=== PATIENT | male | born 1940 | race Caucasian/White ===

== ENCOUNTER 2017-05-07 06:08 | Day surgery (SDC) | payer MEDICARE, OTHER ==
[2017-05-07] VITALS (19 sets, daily range): BP systolic 122–163; BP diastolic 52–84; PULSE 46–67; RESP 20–40; Ht 180.3 cm; Wt 76.0 kg
[~2017-05-07] VITALS: Ht 180.3 cm; Wt 76.0 kg
[~2017-05-07 06:08] MED LIST: ACET325T45 PO; ASPI81TA3 PO; ATOR40TA68 PO; CARV12.598 PO; CLOP75TA27 PO; LISI10TA2 PO; LORA2DIS2 IJ; OXYC-281 PO; PHEN-612 PO; SPIR25TA PO; TAMS-14 PO; ZOF4I IV; ZOLP5TAB7 PO
[2017-05-07] MEDS ORDERED: ASPIRIN 325 MG TAB ONE (06:39)
[2017-05-07] MEDS ORDERED: METO-429 PO (06:55)
[2017-05-07] MEDS ORDERED: FURO40TA4 PO (06:55)
[2017-05-07] MEDS ORDERED: VALS80TA2 PO (06:55)
[2017-05-07] MEDS ORDERED: CITA10TA84 PO (06:55)
[2017-05-07] MEDS ORDERED: RANO500T2 PO (06:55)
[2017-05-07 07:06] LABS: ADD SCAN DIFF NO; BASOPHIL # 0.1 10^3/ul (0.0-0.1); BASOPHILS % 0.7 % (0.0-2.0); EOSINOPHILS # 0.2 10^3/ul (0.0-0.5); EOSINOPHILS % 2.9 % (0.0-7.0); HEMATOCRIT 42.4 % (42.0-52.0); HEMOGLOBIN 13.9 g/dl (14.0-18.0); LYMPHOCYTES # 1.5 10^3/ul (0.8-2.9); MEAN CORPUSCULAR HEMOGLOBIN 29.7 pg (29.0-33.0); MEAN CORPUSCULAR HGB CONC 32.8 g/dl (32.0-37.0); MEAN CORPUSCULAR VOLUME 90.6 fl (82.0-101.0); MEAN PLATELET VOLUME 10.1 fl (7.4-10.4); MONOCYTE # 0.5 10^3/ul (0.3-0.9); MONOCYTES % 6.6 % (0.0-11.0); NEUTROPHILS % 68.4 % (39.0-77.0); PLATELET COUNT 291 10^3/UL (140-415); RED BLOOD COUNT 4.68 10^6/ul (4.70-6.10); RED CELL DISTRIBUTION WIDTH 12.9 % (11.5-14.5); WHITE BLOOD COUNT 7.3 10^3/ul (4.8-10.8)
[2017-05-07] MEDS ORDERED: MIDAZOLAM 1 MG/ML 2 ML INJ ONE (07:27)
[2017-05-07] MEDS ORDERED: HEPARIN 1000 UNITS/ML 10 ML INJ ONE (07:27)
[2017-05-07] MEDS ORDERED: FENTAnyl 50 MCG/ML VIAL ONE (07:27)
[2017-05-07] MEDS ORDERED: IODIXANOL LOCM 100 ML BTL ONE (07:27)
[2017-05-07] MEDS ORDERED: LIDOCAINE 1% (MDV) 20 ML INJ ONE (07:27)
[2017-05-07] MEDS ORDERED: NITROGLYCERIN (IC) 100 MCG/ML INJ ONE (07:27)
[2017-05-07] MEDS ORDERED: VERAPAMIL 5 MG INJ ONE (07:27)
[2017-05-07 07:29] LABS: INR 0.93; PROTIME 12.5 Sec (12.2-14.2)
[2017-05-07 07:31] LABS: CALCIUM 9.8 mg/dl (8.4-10.2); CREATININE 1.18 mg/dl (0.61-1.24); POTASSIUM 4.2 mmol/L (3.5-5.1)
[2017-05-07] MEDS ORDERED: BIVALIRUDIN 250MG /NS 50 ML 50 ML IVPB ONE ×2 (08:22→09:18)
[2017-05-07] MEDS ORDERED: SOD CHLORIDE 0.9% 500 ML ONE (08:22)
[2017-05-07] MEDS ORDERED: CLOPIDOGREL 300 MG TAB ONE (08:22)
[2017-05-07] MEDS ORDERED: IOHEXOL 350MG/ML 50 ML BTL ONE (08:32)
[2017-05-07] MEDS ORDERED: SOD CHLORIDE 0.9% 1,000 ML IV SCH (09:44)
[2017-05-07] MEDS ORDERED: ONDANSETRON 4 MG INJ ONE (09:49)
[2017-05-07] MEDS ORDERED: morphine 2 MG INJ IV PRN (10:00)
[2017-05-07] MEDS ORDERED: ONDANSETRON 4 MG INJ IV PRN (10:00)
[2017-05-07] MEDS ORDERED: hydrALAzine 20 MG INJ IV PRN (10:30)
--- NOTE | 2017-05-07 10:32 | OPR ---
Date/Time of Note Date/Time of Note DATE: 05/07/17 TIME: 10:08 Operative Report Free Text/Dictation Procedure Date: Procedures Performed: 1)Left heart catheterization with selective left and right coronary angiography. 2)Aortogram 3)Unsuccessful PCI of distal OM in stent restenosis. Pre-operative Diagnosis: Stable angina with abnormal stress test. CAD s/p CABG , prior PCI Post-operative Diagnosis: same, see anatomy below Indications: 77 yo M with a h/o CAD s/p CABG 2008 (LAWRENCE-LAD, SVG jump graft to diag/OM/PDA), PCI of distal OM prior to jump grafts and prox/mid OM in the past. Pt had recurrence of symptoms despite maximal medical therapy. A nuclear scan showed anterior scar. PET viability showed lateral ischemia with viability. Description of Procedure: After informed consent, the patient was brought to the cardiac catheterization lab. The procedure site was prepped and draped in usual manner. The patient was premedicated with versed 1 mg and fentanyl 25 mcg. 2mL lidocaine was injected into the left wrist. Next using the posterior wall technique, the 6/5 macedonian sheath was inserted into the left radial artery. Next using the JL4 and IM, selective angiography of the left and right coronary arteries as well as the LAWRENCE were obtained. The pigtail was then advanced into the ventricle and hemodynamics obtained. Left ventricle angiography was not obtained. An aortogram was done. The decision was made to proceed with PCI of the distal OM for in stent restenosis as well as the ostial jump graft portion to the PDA. A Q curve 3.5 guide was used to engage the artery but did not sit well. The BMW wire was advanced to the mid OM but could not be advanced further. An OTW balloon was used for support and the wire was able to advance close to the lesion but the balloon would not follow due to inadequate guide support and severe vessel tortuosity. Next the equipment was removed and multiple guides attempted including an EBU 3.0, AL 1.5, JL 3.5, JL 5. Eventually the JL5 was engaged but again was not coaxial. The BMW wire was advanced with the help of the OTW balloon and would only get to the mid Cx. With advancement of the OTW the guide would dislodge. Next the wire was exchanged for a Runthrough wire and this was able to cross the OM lesion but not through the ostial vein graft lesion. The OTW balloon could not be advanced for support again due to tortuosity and guide support. At this time, the decision was made to stop and to bring the pt back for staged PCI in a few weeks. Next all equipment was removed and hemostasis was achieved by TR band. Findings: Anatomy/Hemodynamics: Left main:short, no disease LAD: mid 100%, fills via LAWRENCE Diagonal: fills via jump graft from OM Circumflex: distal 100% Obtuse marginal: large vessel with patent prox-mid stents, distal stent with 95 % ISR beyond which are two vein grafts (part of original jump graft) which backflow to the diag and PDA. The PDA vein graft has an ostial 95% lesion RCA:nondominant small vessel with mid 99% PDA:fills via jump graft from OM LAWRENCE-LAD patent Aortogram confirmed no vein grafts arising from the aorta Jump graft from OM to PDA: ostial 95% Jump graft from OM to Diag: patent LV angiography:not done LV-Ao:no gradient LVEDP: mmHg Contrast used: 230 mL Fluoroscopy time: 39.4 min Medications used: Versed 2mg Fentanyl 25mcg Equipment used: 6 macedonian Q-curve 3.5, AL 1, EBU 3.0, JL 3, JL 5 guides BMW and runthrough angioplasty wires 2 x 12 balloon OTW (not inflated) Assessment: [place] coronary artery disease of the distal OM with in stent restenosis supplying two jump grafts as described above Stable angina CAD s/p CABG s/p PCI Ischemic cardiomyopathy Plan: -observe in PACU for 6 hours, then d/c home if no issues -discussed case with pt's investor relations associate, Dr. Myers. Plan is to increase Ranexa to 1000mg BID -will stage PCI in 2-3 weeks as outpt -continue ASA, plavix and remainder of home meds POOJA KRUGER May 07, 2017 10:32
[2017-05-07] MEDS ORDERED: ASPIRIN 325 MG TAB PO SCH (12:30)
[2017-05-07] MEDS ORDERED: MIDAZOLAM 1 MG/ML 2 ML INJ IV SCH (12:30)
[2017-05-07] MEDS ORDERED: NACL 0.9% 3 ML SYG IV SCH (14:00)
[2017-05-07] MEDS ORDERED: ACETAMINOPHEN 325 MG TAB PO ONE (16:00)
--- NOTE | 2017-05-11 20:54 | RADRPT ---
Vent Rate: 59 bpm RR Interval: 0 msec [place] Interval: 210 msec QRS Duration: 114 msec QT Interval: 460 msec QTC Interval: 455 msec P-R-T [place]: 52 - 32 - 128 degrees Sinus bradycardia with 1st degree AV block Incomplete left bundle branch block Left ventricular hypertrophy with repolarization abnormality Abnormal ECG Electronically Signed By: Moody Carroll [id number]
== END 2017-05-07 16:10 | disposition home or self-care (01) ==
LOC: SDS 06:08
PROVIDERS: ATTEND Internal Medicine Interventional Cardiology
DX: I25.118 Atherosclerotic heart disease of native coronary artery with other forms of angina pectoris (principal); I25.5 Ischemic cardiomyopathy; Z95.1 Presence of aortocoronary bypass graft; Z95.5 Presence of coronary angioplasty implant and graft
CPT/HCPCS: 80048; 85025; 85610; 85730; 92920; 93005; 93459; C1725; C1769; C1887; J0583; J1644; J2250; J2405; J3010; J7040; Q9967

== ENCOUNTER 2017-05-18 07:44 | Day surgery (SDC) | payer MEDICARE, OTHER ==
[~2017-05-18] VITALS: Ht 180.3 cm; Wt 77.5 kg
[2017-05-18] VITALS (34 sets, daily range): BP systolic 119–158; BP diastolic 42–122; PULSE 43–67; RESP 7–21; Ht 180.3 cm; Wt 77.5 kg
[~2017-05-18 07:44] MED LIST changes: -ACET325T45 PO; -ATOR40TA68 PO; -CARV12.598 PO; +CITA10TA84 PO; +FURO40TA4 PO; -LISI10TA2 PO; -LORA2DIS2 IJ; +METO-429 PO; -OXYC-281 PO; -PHEN-612 PO; +RANO500T2 PO; -SPIR25TA PO; -TAMS-14 PO; +VALS80TA2 PO; -ZOF4I IV
--- NOTE | 2017-05-18 08:21 | OPR ---
Date/Time of Note Date/Time of Note DATE: 05/18/17 TIME: 08:16 Operative Report Free Text/Dictation Procedure Date:05/18/2017 Procedures Performed: 1)Balloon angioplasty and stenting of the distal OM extending into jump graft to the PDA with a Synergy 2.5 x 16 drug-eluting stent. 2)Left femoral angiogram 3)Distal aorta angiogram Pre-operative Diagnosis:Stable angina with abnormal stress test. CAD s/p CABG, prior PCI Post-operative Diagnosis:same Indications: 77 yo M with a h/o CAD s/p CABG 2008 (LAWRENCE-LAD, SVG jump graft to diag/OM/PDA), PCI of distal OM prior to jump grafts and prox/mid OM in the past. Pt had recurrence of symptoms despite maximal medical therapy. A nuclear scan showed anterior scar. PET viability showed lateral ischemia with viability. Attempted PCI of distal OM/SVG jump graft 05/07 was not successful through the left radial approach and pt continued to have ongoing symptoms, so he was agreeable to another attempt through the femoral approach. Description of Procedure: After informed consent, the patient was brought to the cardiac catheterization lab. The procedure site was prepped and draped in usual manner. The patient was premedicated with versed 1mg and fentanyl 25 mcg. mL lidocaine was injected into the left groin. Under ultrasound guidance, the left femoral artery was accessed using a micropuncture needle. Due to heavy scarring in the groin, multiple dilators were used to pre dilate the groin until a 6 fr sheath was inserted. A Voda 3.5 guide was advanced and engaged into the left coronary artery. After appropriate anticoagulation and antiplatelets were given, the PT 2 moderate support angioplasty wire was advanced past the lesion with a 1.2 x 8 balloon for support. The ballloon was then used to dilate the lesion times 3. Next the 2.0 X 12 balloon was used to dilate the lesion times3 at a maximum of 12 dago. Subsequently, the Synergy 2.5 x 16 stent was advanced to the lesion and deployed at 12 dago. Next the stent was post dilated with the 3.0 X 8 noncompliant balloon times 4 at a maximum of 4 dago. Final angiography revealed LANI 3 flow, no edge dissection, and appropriate stent expansion. Next all equipment was removed and hemostasis was achieved by manual compression. Findings: Anatomy:(from cath 05/07/2017) Left main:short, no disease LAD: mid 100%, fills via LAWRENCE Diagonal: fills via jump graft from OM Circumflex: distal 100% Obtuse marginal: large vessel with patent prox-mid stents, distal stent with 95 % ISR beyond which are two vein grafts (part of original jump graft) which backflow to the diag and PDA. The PDA vein graft has an ostial 95% lesion RCA:nondominant small vessel with mid 99% PDA:fills via jump graft from OM LAWRENCE-LAD patent Aortogram confirmed no vein grafts arising from the aorta Jump graft from OM to PDA: ostial 95% Jump graft from OM to Diag: patent From today: left iliac stents patent. Left femoral to right femoral bypass patent. Right iliac occluded at origin. Distal aorta aneurysm. Contrast used: 160mL Fluoroscopy time: 14.6 min Medications used: Versed 1mg Fentanyl 25 mcg ASA 81mg plavix 300mg Angiomax bolus plus drip Equipment used: 6 pashto Voda 3.5 guide PT2 moderate support angioplasty wire 1.2 x 8 balloon 2 x 12 balloon Synergy 2.5 x 16 drug-eluting stent 3.0 x 8 noncompliant balloon Assessment: [place] coronary artery disease of the distal OM with in stent restenosis supplying two jump grafts s/p successful PCI. Stable angina CAD s/p CABG s/p PCI Ischemic cardiomyopathy Plan: -admit to ICU for overnight observation -continue ASA, plavix, MTP, Ranexa -d/c in am if no issues Procedure Date: May 18, 2017 POOJA KRUGER May 18, 2017 08:21
[2017-05-18] MEDS ORDERED: MIDAZOLAM 1 MG/ML 2 ML INJ IV ONE (08:30)
[2017-05-18] MEDS ORDERED: ASPIRIN 325 MG TAB PO ONE (08:30)
[2017-05-18] MEDS ORDERED: LIDOCAINE 1% (MDV) 20 ML INJ ONE (08:31)
[2017-05-18] MEDS ORDERED: MIDAZOLAM 1 MG/ML 2 ML INJ ONE (08:31)
[2017-05-18] MEDS ORDERED: IODIXANOL LOCM 100 ML BTL ONE ×2 (08:31→10:05)
[2017-05-18] MEDS ORDERED: NITROGLYCERIN (IC) 100 MCG/ML INJ ONE (08:31)
[2017-05-18] MEDS ORDERED: IOHEXOL 350MG/ML 50 ML BTL ONE (08:31)
[2017-05-18] MEDS ORDERED: FENTAnyl 50 MCG/ML VIAL ONE (08:31)
[2017-05-18] MEDS ORDERED: BIVALIRUDIN 250MG /NS 50 ML 50 ML IVPB ONE (08:34)
[2017-05-18 08:52] LABS: ADD SCAN DIFF NO
[2017-05-18 08:55] LABS: BASOPHIL # 0.1 10^3/ul (0.0-0.1); BASOPHILS % 0.8 % (0.0-2.0); EOSINOPHILS # 0.2 10^3/ul (0.0-0.5); EOSINOPHILS % 2.7 % (0.0-7.0); HEMATOCRIT 36.7 % (42.0-52.0); MEAN CORPUSCULAR HGB CONC 32.7 g/dl (32.0-37.0); MEAN CORPUSCULAR VOLUME 91.8 fl (82.0-101.0); MEAN PLATELET VOLUME 10.1 fl (7.4-10.4); MONOCYTE # 0.4 10^3/ul (0.3-0.9); NEUTROPHIL # 5.6 10^3/ul (1.6-7.5); NEUTROPHILS % 76.2 % (39.0-77.0); PLATELET COUNT 244 10^3/UL (140-415); RED CELL DISTRIBUTION WIDTH 13.4 % (11.5-14.5); WHITE BLOOD COUNT 7.3 10^3/ul (4.8-10.8)
[2017-05-18] MEDS ORDERED: CITA20TA11 PO (09:02)
[2017-05-18] MEDS ORDERED: ONDA-43 PO (09:03)
[2017-05-18] MEDS ORDERED: ALPR0.254 PO (09:04)
[2017-05-18 09:10] LABS: INR 0.92; PROTIME 12.4 Sec (12.2-14.2)
[2017-05-18 09:11] LABS: PARTIAL THROMBOPLASTIN TIME 26.8 Sec (25.0-35.0)
[2017-05-18] MEDS ORDERED: CLOPIDOGREL 300 MG TAB ONE (09:29)
[2017-05-18] MEDS ORDERED: ASPIRIN 81 MG TAB ONE (09:29)
[2017-05-18 09:40] LABS: CALCIUM 9.2 mg/dl (8.4-10.2); CREATININE 1.01 mg/dl (0.61-1.24); POTASSIUM 4.3 mmol/L (3.5-5.1)
[2017-05-18] MEDS ORDERED: SOD CHLORIDE 0.9% 1,000 ML IV SCH (10:14)
[2017-05-18] MEDS: morphine 2 MG INJ IV PRN ×4 (12:00→21:14)
--- NOTE | 2017-05-18 12:28 | HP ---
Date/Time of Note Date/Time of Note DATE: 05/18/17 TIME: 12:23 Assessment/Plan VTE Prophylaxis VTE Prophylaxis Intervention: other Lines/Catheters IV Catheter Type (from Nrs): Peripheral IV Assessment/Plan Chief Complaint/Hosp Course 1. Coronary disease status post cardiac cath with PCI to the OM. Plan is to continue current medical management Monitor in ICU Follow-up with cardiology 2. Coronary disease status post CABG. Continue medical management 3. Hypertension continue current blood pressure regimen 4. Anxiety,/depression. Continue medical manage 5. GI DVT prophylaxis Please note spent over 25 minutes [id number] time with patient is full code Problems: HPI/ROS Admit Date/Time Admit Date/Time Hx of Present Illness This is a 77-year-old male with a past medical history of coronary disease status post CABG in 2008 history of colon cancer status post resection with colostomy bag history of coronary disease history of hypertension who presents to [facility] to undergo elective cardiac catheterization. Patient was noted to have a positive nuclear scan and outpatient setting that showed lateral ischemia with viability. Patient had a previous attempt of a PCI of the distal OM on 629 that was not successful. Patient now is brought in and underwent cardiac catheterization by production machine shop supervisor with successful stent of the OM. Patient was transferred to intensive care unit for observation. Upon my evaluation patient at this time is currently stable denies any chest pain fever chills nausea vomiting or shortness of breath. ROS 14 point conducted. Pertinent positives in HPI otherwise negative PMH/Family/Social Past Medical History Per HPI Past Surgical History Status post CABG, status post colorectal surgery with colostomy Social History Smoking Status: Former smoker Exam/Review of Systems Vital Signs Vitals Vital Signs Date Time Temp Pulse Resp B/P Pulse Ox O2 Delivery O2 Flow Rate FiO2 05/18/17 11:15 45 17 135/42 99 05/18/17 11:00 Room Air 05/18/17 10:45 97.5 Exam Exam HEENT. Head is normocephalic pupils are reactive to Neck is supple Heart is regular rate no gallops clear Lungs show diminished breath sounds at bases otherwise clear Abdomen soft nontender palpation positive colostomy Symptoms are negative for clubbing cyanosis no edema Dermatologically no rashes Musculoskeletal no joint effusion Neurologically no focal deficit Labs Result Diagram: 05/18/1730 05/18/17 0830 Medications Medications Current Medications IV Flush (NS 3 ml) 3 ml Q8 IV ; Start 05/18/17 at 14:00 Miscellaneous Information (* Miscellaneous Pharmacy Order) HOLD all METFORMIN ... ONCE XX Last administered on 05/18/17 10:51; Admin Dose 1 EA; Start at 10:30; Stop 05/20/17 at 10:29 Morphine Sulfate (morphine) 2 mg Q2H PRN IV FOR NON CARDIAC PAIN (4-10) Last administered on 05/18/17 12:00; Admin Dose 2 MG; Start 05/18/17 at 10:30 Ondansetron HCl 4 mg 4 mg Q4H PRN IV NAUSEA AND/OR VOMITING; Start 05/18/17 at 10:30 Sodium Chloride (NS) 1,000 ml @ 75 mls/hr [id number] IV Last administered on 05/18 10:49; Admin Dose 75 MLS/HR; Start 05/18/17 at 10:14; Stop 05/18/17 at 15: 13 Aspirin (Aspirin) 81 mg DAILY PO ; Start 05/19/17 at 09:00 Clopidogrel Bisulfate (plaVIX) 75 mg DAILY PO ; Start 05/19/17 at 09:00 Metoprolol Tartrate (Lopressor) 50 mg BID PO ; Start 05/18/17 at 21:00 Ranolazine (Ranexa) 500 mg BID PO ; Start 05/18/17 at 21:00 PRISCILA SINGLETON DO May 18, 2017 12:28
[2017-05-18] MEDS ORDERED: ATROPINE 1 MG/10 ML SYRINGE ONE (13:21)
--- NOTE | 2017-05-18 13:47 | RADRPT ---
Vent Rate: 62 bpm RR Interval: 0 msec ND Interval: 162 msec QRS Duration: 120 msec QT Interval: 486 msec QTC Interval: 493 msec P-R-T [place]: 13 - 32 - 159 degrees Sinus rhythm with occasional premature ventricular complexes Possible Left atrial enlargement Left ventricular hypertrophy with QRS widening and repolarization abnormality Abnormal ECG Electronically Signed By: Petey Schaefer [id number]
[2017-05-18] MEDS: NACL 0.9% 3 ML SYG IV SCH ×2 (13:57→22:00)
[2017-05-18] MEDS ORDERED: HYDROmorphONE 1 MG/ML SYG IV STA (18:58)
[2017-05-18] MEDS: ONDANSETRON 4 MG INJ IV PRN (20:25)
[2017-05-18] MEDS: METOPROLOL 50 MG TAB PO SCH (21:00)
--- NOTE | 2017-05-18 21:22 | CONS ---
Date/Time of Note Date/Time of Note DATE: 05/18/17 TIME: 21:07 Assessment/Plan Assessment/Plan Chief Complaint/Hosp Course Urinary retention and bladder neck contracture. 14 Barbadian coud catheter was inserted under local anesthesia and the clear urine drained out Cortez catheter will be kept in. Hypertension coronary artery disease managed by the cardiology and medical team Problems: Additional Assessment/Plan Bladder neck contracture and urinary retention. Cortez catheter was inserted we will keep it until the patient is stable and does not need monitoring then we could take the catheter out and see if he is able to urinate on his own. Consultation Date/Type/Reason Admit Date/Time May 18, 2017 Date of Consultation: May 18, 2017 Type of Consultation: urology Reason for Consultation Urinary retention, staff unable to insert a Cortez catheter Referring Provider: PRISCILA SINGLETON DO Hx of Present Illness This is a 77-year-old male who is known to have a history of coronary artery disease status post coronary artery bypass graft in 1997 and 2008 also history of coronary angiogram and insertion of coronary stents . he was admitted today to undergo coronary angiography and stent placement and that was done successfully. After the procedure the patient was not able to urinate and attempts by the nursing staff to insert a Cortez catheter was not successful therefore a urological consultation was requested. Patient states that he does have nocturia about 2-3 times and during the day he voids quite often every hour to 1-2 hours his urinary stream is slow there is no history of dysuria no hematuria and no prior surgery on his bladder or prostate. Constitutional: no complaints Eyes: no complaints ENT: no complaints Respiratory: no complaints Cardiovascular: chest pain Gastrointestinal: nausea, No vomiting Genitourinary: other (Suprapubic pain patient unable to urinate.) Musculoskeletal: no complaints Skin: no complaints Neurologic: no complaints Endocrine: no complaints Lymphatic: no complaints Psychological: no complaints Past Medical History Medical History: coronary artery disease, hypertension, other (History of colon cancer, status post surgery and permanent colostomy) Past Surgical History Past Surgical Hx: angioplasty, coronary bypass surgery, other (Patient has had coronary artery bypass graft twice coronary angioplasty multiple times femoral- popliteal bypass bilateral colon resection and colostomy) Family History Significant Family History: no pertinent family hx Social History Alcohol Use: occasionally Smoking Status: Former smoker Drug Use: none Exam/Review of Systems Vital Signs Vitals Vital Signs Date Time Temp Pulse Resp B/P Pulse Ox O2 Delivery O2 Flow Rate FiO2 05/18/17 18:00 46 20 143/57 96 Room Air 05/18/17 16:00 97.9 Exam Constitutional: alert, other (Complains of chest pain and suprapubic pain, wants to urinate and cannot) Psych: no complaints Head: normocephalic Eyes: nl conjunctiva ENMT: nl external ears & nose Neck: supple Respiratory: normal air movement Cardiovascular: regular rate and rhythm Gastrointestinal: other (Left lower quadrant colostomy and suprapubic tenderness), soft, surgical scars Genitourinary - Male: nl penis, nl scrotum, other (Attempt to do a rectal examination not possible because his rectum has a closed almost completely since he has had a colostomy for over 20 years) Musculoskeletal: nl extremities to inspection Extremities: other (He does have scars on lower extremities from the femoral- popliteal bypass), No edema Neurological: nl speech Skin: nl turgor Lymph: nl lymph nodes Results Result Diagram: 05/18/17 0830 05/18/17 0830 Results 24 hrs Laboratory Tests Test 05/18/17 08:30 White Blood Count 7.3 Red Blood Count 4.00 L Hemoglobin 12.0 L Hematocrit 36.7 L Mean Corpuscular Volume 91.8 Mean Corpuscular Hemoglobin 30.0 Mean Corpuscular Hemoglobin Concent 32.7 Red Cell Distribution Width 13.4 Platelet Count 244 Mean Platelet Volume 10.1 Neutrophils % 76.2 Lymphocytes % 14.0 L Monocytes % 6.0 Eosinophils % 2.7 Basophils % 0.8 Nucleated Red Blood Cells % 0.0 Neutrophils # 5.6 Lymphocytes # 1.0 Monocytes # 0.4 Eosinophils # 0.2 Basophils # 0.1 Nucleated Red Blood Cells # 0.0 Prothrombin Time 12.4 Prothrombin Time Ratio 1.0 INR International Normalized Ratio 0.92 Activated Partial Thromboplast Time 26.8 Sodium Level 140 Potassium Level 4.3 Chloride Level 105 Carbon Dioxide Level 28 Anion Gap 11 Blood Urea Nitrogen 17 Creatinine 1.01 Glucose Level 102 Calcium Level 9.2 Medications Medications Current Medications IV Flush (NS 3 ml) 3 ml Q8 IV Last administered on 05/18/17t 13:57; Admin Dose 3 ML; Start 05/18/17 at 14:00 Miscellaneous Information (* Miscellaneous Pharmacy Order) HOLD all METFORMIN ... ONCE XX Last administered on 05/18/17 10:51; Admin Dose 1 EA; Start at 10:30; Stop 05/20/17 at 10:29 Morphine Sulfate (morphine) 2 mg Q2H PRN IV FOR NON CARDIAC PAIN (4-10) Last administered on 05/18/17 18:22; Admin Dose 2 MG; Start 05/18/17 at 10:30 Ondansetron HCl (Zofran Inj) 4 mg Q4H PRN IV NAUSEA AND/OR VOMITING Last administered on 05/18/17 20:25; Admin Dose 4 MG; Start 05/18/17 at 10:30 Aspirin (Aspirin) 81 mg DAILY PO ; Start 05/19/17 at 09:00 Clopidogrel Bisulfate (plaVIX) 75 mg DAILY PO ; Start 05/19/17 at 09:00 Metoprolol Tartrate (Lopressor) 50 mg BID PO ; Start 05/18/17 at 21:00 Ranolazine (Ranexa) 500 mg BID PO ; Start 05/18/17 at 21:00 Procedures Procedures Insertion of an indwelling Cortez catheter: Patient was placed in the supine position, the genital area was prepped and draped in the usual sterile manner. 2% lidocaine gel was then injected into the urethra for local anesthesia. Penile clamp was applied on the penis to keep the the gel inside and waited for 5 minutes for it to work. Then I used a 16 Barbadian coud catheter and advanced it as it reached the proximal urethra probably around the bladder neck it would not advance it became very tight. Therefore I went ahead and used a 14 Barbadian coud catheter and that was able to be pushed inside the bladder even though it was tight on it around the bladder neck. Clear urine did drain . the balloon was then inflated with 10 mL of sterile water and the catheter connected to a drainage bag .Patient tolerated the procedure well MALINI CORREIA MD May 18, 2017 21:20
[2017-05-18] MEDS: RANOLAZINE (SR) 500 MG TAB PO SCH (23:10)
[2017-05-18] MEDS: ACETAMINOPHEN 325 MG TAB PO PRN (23:10)
[2017-05-19] VITALS (28 sets, daily range): BP systolic 106–168; BP diastolic 41–76; PULSE 44–70; RESP 13–24
[2017-05-19] MEDS: ZOLPIDEM 5 MG TAB PO PRN ×2 (01:30→23:12)
[2017-05-19] MEDS: morphine 2 MG INJ IV PRN ×2 (05:29→17:43)
[2017-05-19 05:46] LABS: ADD SCAN DIFF NO
[2017-05-19 05:48] LABS: BASOPHILS % 0.6 % (0.0-2.0); EOSINOPHILS # 0.1 10^3/ul (0.0-0.5); EOSINOPHILS % 1.5 % (0.0-7.0); HEMATOCRIT 35.8 % (42.0-52.0); HEMOGLOBIN 11.3 g/dl (14.0-18.0); LYMPHOCYTES # 0.9 10^3/ul (0.8-2.9); MEAN CORPUSCULAR HEMOGLOBIN 29.4 pg (29.0-33.0); MEAN CORPUSCULAR HGB CONC 31.6 g/dl (32.0-37.0); MEAN CORPUSCULAR VOLUME 93.2 fl (82.0-101.0); MEAN PLATELET VOLUME 9.8 fl (7.4-10.4); MONOCYTE # 0.4 10^3/ul (0.3-0.9); NEUTROPHIL # 3.2 10^3/ul (1.6-7.5); NEUTROPHILS % 69.7 % (39.0-77.0); PLATELET COUNT 208 10^3/UL (140-415); RED BLOOD COUNT 3.84 10^6/ul (4.70-6.10); RED CELL DISTRIBUTION WIDTH 13.3 % (11.5-14.5); WHITE BLOOD COUNT 4.7 10^3/ul (4.8-10.8)
[2017-05-19] MEDS: NACL 0.9% 3 ML SYG IV SCH ×3 (06:01→22:00)
[2017-05-19 06:28] LABS: CALCIUM 9.2 mg/dl (8.4-10.2); CREATININE 0.87 mg/dl (0.61-1.24); MAGNESIUM 2.1 mg/dl (1.7-2.5); PHOSPHORUS 4.4 mg/dl (2.5-4.9); POTASSIUM 4.6 mmol/L (3.5-5.1)
--- NOTE | 2017-05-19 08:32 | CONS ---
Date/Time of Note Date/Time of Note DATE: 05/19/17 TIME: 08:30 Assessment/Plan Assessment/Plan Chief Complaint/Hosp Course CAD/CABG: s/p PCI of distal OM which supplies two vein grafts (diag and PDA). HTN CKD: Cr normal now Urinary retention: s/p pop -ok for d/c from my perspective (active issues are urology related) -ASA and plavix as outpt -f/u with Dr. Myers in 1-2 weeks Problems: Consultation Date/Type/Reason Admit Date/Time Initial Consult Date 05/18/17 Type of Consultation: Cardiology Referring Provider: PRISCILA SINGLETON DO 24 HR Interval Summary Free Text/Dictation Had pop inserted by urology due to retention. No complaints this am. Exam/Review of Systems Vital Signs Vitals Vital Signs Date Time Temp Pulse Resp B/P Pulse Ox O2 Delivery O2 Flow Rate FiO2 05/19/17 08:00 97.7 45 16 125/47 98 Room Air Intake and Output 05/18/17 05/18/17 05/19/17 15:00 23:00 07:00 Intake Total 679 ml 139 ml 120 ml Output Total 220 ml 1030 ml 775 ml Balance 459 ml -891 ml -655 ml Exam Constitutional: alert, oriented Psych: nl mood/affect, no complaints Head: atraumatic, normocephalic Neck: No jvd Respiratory: clear to auscultation, No crackles/rales Cardiovascular: regular rate and rhythm, No edema Gastrointestinal: non-tender, soft Extremities: other (left groin without hematoma ) Neurological: nl mental status Results Result Diagram: 05/19/17 0535 05/19/17 0535 Results 24 hrs Laboratory Tests Test 05/19/17 05:35 White Blood Count 4.7 #L Red Blood Count 3.84 L Hemoglobin 11.3 L Hematocrit 35.8 L Mean Corpuscular Volume 93.2 Mean Corpuscular Hemoglobin 29.4 Mean Corpuscular Hemoglobin Concent 31.6 L Red Cell Distribution Width 13.3 Platelet Count 208 Mean Platelet Volume 9.8 Neutrophils % 69.7 Lymphocytes % 20.0 Monocytes % 8.0 Eosinophils % 1.5 Basophils % 0.6 Nucleated Red Blood Cells % 0.0 Neutrophils # 3.2 Lymphocytes # 0.9 Monocytes # 0.4 Eosinophils # 0.1 Basophils # 0.0 Nucleated Red Blood Cells # 0.0 Sodium Level 140 Potassium Level 4.6 Chloride Level 101 Carbon Dioxide Level 30 Anion Gap 14 Blood Urea Nitrogen 15 Creatinine 0.87 Glucose Level 105 Calcium Level 9.2 Phosphorus Level 4.4 Magnesium Level 2.1 Medications Medications Current Medications IV Flush (NS 3 ml) 3 ml Q8 IV Last administered on 05/19/17 06:01; Admin Dose 3 ML; Start 05/18/17 at 14:00 Miscellaneous Information (* Miscellaneous Pharmacy Order) HOLD all METFORMIN ... ONCE XX Last administered on 05/18/17 10:51; Admin Dose 1 EA; Start at 10:30; Stop 05/20/17 at 10:29 Morphine Sulfate (morphine) 2 mg Q2H PRN IV FOR NON CARDIAC PAIN (4-10) Last administered on 05/19/17 05:29; Admin Dose 2 MG; Start 05/18/17 at 10:30 Ondansetron HCl (Zofran Inj) 4 mg Q4H PRN IV NAUSEA AND/OR VOMITING Last administered on 05/18/17 20:25; Admin Dose 4 MG; Start 05/18/17 at 10:30 Aspirin (Aspirin) 81 mg DAILY PO ; Start 05/19/17 at 09:00 Clopidogrel Bisulfate (plaVIX) 75 mg DAILY PO ; Start 05/19/17 at 09:00 Metoprolol Tartrate (Lopressor) 50 mg BID PO ; Start 05/18/17 at 21:00 Ranolazine (Ranexa) 500 mg BID PO Last administered on 05/18/17 23:10; Admin Dose 500 MG; Start 05/18/17 at 21:00 Acetaminophen (Tylenol Tab) 650 mg Q4H PRN PO PAIN AND OR ELEVATED TEMP Last administered on 05/18/17 23:10; Admin Dose 650 MG; Start 05/18/17 at 23:00 POOJA KRUGER May 19, 2017 08:32
[2017-05-19] MEDS: METOPROLOL 50 MG TAB PO SCH ×2 (09:00→21:07)
[2017-05-19] MEDS: RANOLAZINE (SR) 500 MG TAB PO SCH ×2 (09:04→21:07)
[2017-05-19] MEDS: ASPIRIN 81 MG TAB PO SCH (09:04)
[2017-05-19] MEDS: CLOPIDOGREL 75 MG TAB PO SCH (09:04)
--- NOTE | 2017-05-19 09:45 | PN ---
Date/Time of Note Date/Time of Note DATE: 05/19/17 TIME: 09:43 Assessment/Plan VTE Prophylaxis VTE Prophylaxis Intervention: other Lines/Catheters IV Catheter Type (from Nrs): Peripheral IV Urinary Cath still in place: Yes Reason Cath still needed: other (indicate) Assessment/Plan Chief Complaint/Hosp Course 1. Coronary disease status post cardiac cath with PCI to the OM. Plan is to continue current medical management Follow-up with cardiology 2. BPH with urinary retention Status post Cortez catheter placed Will follow up with urology if okay to DC Cortez catheter 2. Coronary disease status post CABG. Continue medical management 3. Hypertension continue current blood pressure regimen 4. Anxiety,/depression. Continue medical manage 5. GI DVT prophylaxis 6. Mild leukopenia monitor Problems: Subjective 24 Hr Interval Summary Free Text/Dictation Patient yesterday noted to have urinary retention. Unable to have Cortez catheter passed. Urgent urology consult was placed Dr. donnelly evaluated patient and placed a Cortez catheter. Overnight patient was clinically stable Exam/Review of Systems Vital Signs Vitals Vital Signs Date Time Temp Pulse Resp B/P Pulse Ox O2 Delivery O2 Flow Rate FiO2 05/19/17 08:00 97.7 45 16 125/47 98 Room Air Intake and Output 05/18/17 05/18/17 05/19/17 15:00 23:00 07:00 Intake Total 679 ml 139 ml 120 ml Output Total 220 ml 1030 ml 775 ml Balance 459 ml -891 ml -655 ml Exam HEENT. Head is normocephalic pupils are reactive to Neck is supple Heart is regular rate no gallops clear Lungs show diminished breath sounds at bases otherwise clear Abdomen soft nontender palpation positive colostomy Symptoms are negative for clubbing cyanosis no edema Dermatologically no rashes Musculoskeletal no joint effusion Neurologically no focal deficit positive Cortez catheter Results Result Diagram: 05/19/17 0535 05/19/17 0535 Results 24 hrs Laboratory Tests Test 05/19/17 05:35 White Blood Count 4.7 #L Red Blood Count 3.84 L Hemoglobin 11.3 L Hematocrit 35.8 L Mean Corpuscular Volume 93.2 Mean Corpuscular Hemoglobin 29.4 Mean Corpuscular Hemoglobin Concent 31.6 L Red Cell Distribution Width 13.3 Platelet Count 208 Mean Platelet Volume 9.8 Neutrophils % 69.7 Lymphocytes % 20.0 Monocytes % 8.0 Eosinophils % 1.5 Basophils % 0.6 Nucleated Red Blood Cells % 0.0 Neutrophils # 3.2 Lymphocytes # 0.9 Monocytes # 0.4 Eosinophils # 0.1 Basophils # 0.0 Nucleated Red Blood Cells # 0.0 Sodium Level 140 Potassium Level 4.6 Chloride Level 101 Carbon Dioxide Level 30 Anion Gap 14 Blood Urea Nitrogen 15 Creatinine 0.87 Glucose Level 105 Calcium Level 9.2 Phosphorus Level 4.4 Magnesium Level 2.1 Medications Medications Current Medications IV Flush (NS 3 ml) 3 ml Q8 IV Last administered on 05/19/17 06:01; Admin Dose 3 ML; Start 05/18/17 at 14:00 Miscellaneous Information (* Miscellaneous Pharmacy Order) HOLD all METFORMIN ... ONCE XX Last administered on 05/18/17 10:51; Admin Dose 1 EA; Start at 10:30; Stop 05/20/17 at 10:29 Morphine Sulfate (morphine) 2 mg Q2H PRN IV FOR NON CARDIAC PAIN (4-10) Last administered on 05/19/17 05:29; Admin Dose 2 MG; Start 05/18/17 at 10:30 Ondansetron HCl (Zofran Inj) 4 mg Q4H PRN IV NAUSEA AND/OR VOMITING Last administered on 05/18/17 20:25; Admin Dose 4 MG; Start 05/18/17 at 10:30 Aspirin (Aspirin) 81 mg DAILY PO Last administered on 05/19/17 09:04; Admin Dose 81 MG; Start 05/19/17 at 09:00 Clopidogrel Bisulfate (plaVIX) 75 mg DAILY PO Last administered on 05/19/17 09 :04; Admin Dose 75 MG; Start 05/19/17 at 09:00 Metoprolol Tartrate (Lopressor) 50 mg BID PO ; Start 05/18/17 at 21:00 Ranolazine (Ranexa) 500 mg BID PO Last administered on 05/19/17 09:04; Admin Dose 500 MG; Start 05/18/17 at 21:00 Acetaminophen (Tylenol Tab) 650 mg Q4H PRN PO PAIN AND OR ELEVATED TEMP Last administered on 05/18/17 23:10; Admin Dose 650 MG; Start 05/18/17 at 23:00 PRISCILA SINGLETON 11, 2017 09:45
[2017-05-19] MEDS: ONDANSETRON 4 MG INJ IV PRN (10:59)
[2017-05-19] MEDS: ACETAMINOPHEN 325 MG TAB PO PRN (14:36)
--- NOTE | 2017-05-19 18:51 | PN ---
Date/Time of Note Date/Time of Note DATE: 05/19/17 TIME: 18:42 Assessment/Plan VTE Prophylaxis VTE Prophylaxis Intervention: SCD's Lines/Catheters [facility]from [facility] Saline Lock Urinary Cath still in place: Yes Reason Cath still needed: urinary retention, other (indicate) (Bladder neck contracture) Assessment/Plan Chief Complaint/Hosp Course Urinary retention and bladder neck contracture. 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 Keep the Cortez catheter overnight. DC the Cortez catheter at 6 AM ,check if he voids ,do a bladder scan to check his postvoid residual and if he does void well then he could be discharged Subjective 24 Hr Interval Summary Free Text/Dictation Patient is comfortable has no complaints at the present Constitutional: no complaints Eyes: no complaints ENT: no complaints Respiratory: no complaints Cardiovascular: No chest pain, No edema Gastrointestinal: no complaints, No nausea, No vomiting Genitourinary: no complaints, other (Patient has an indwelling Cortez catheter) Musculoskeletal: no complaints Skin: no complaints Neurologic: no complaints Endocrine: no complaints Lymphatic: no complaints Exam/Review of Systems Vital Signs Vitals Vital Signs Date Time Temp Pulse Resp B/P Pulse Ox O2 Delivery O2 Flow Rate FiO2 05/19/17 18:00 53 17 151/53 97 Room Air 05/19/17 16:00 97.8 Intake and Output 05/18/17 05/18/17 05/19/17 15:00 23:00 07:00 Intake Total 679 ml 139 ml 120 ml Output Total 220 ml 1030 ml 875 ml Balance 459 ml -891 ml -755 ml Exam Constitutional: alert, oriented Psych: no complaints Head: normocephalic Eyes: nl conjunctiva ENMT: nl external ears & nose Neck: supple Respiratory: normal air movement Cardiovascular: regular rate and rhythm, No edema Gastrointestinal: non-tender, soft Genitourinary - Male: nl penis, nl scrotum, other (Cortez catheter draining clear urine), No CVA tenderness Musculoskeletal: nl extremities to inspection Neurological: nl speech Results Result Diagram: 05/19/17 0535 05/19/17 0535 Results 24 hrs Laboratory Tests Test 05/19/17 05:35 White Blood Count 4.7 #L Red Blood Count 3.84 L Hemoglobin 11.3 L Hematocrit 35.8 L Mean Corpuscular Volume 93.2 Mean Corpuscular Hemoglobin 29.4 Mean Corpuscular Hemoglobin Concent 31.6 L Red Cell Distribution Width 13.3 Platelet Count 208 Mean Platelet Volume 9.8 Neutrophils % 69.7 Lymphocytes % 20.0 Monocytes % 8.0 Eosinophils % 1.5 Basophils % 0.6 Nucleated Red Blood Cells % 0.0 Neutrophils # 3.2 Lymphocytes # 0.9 Monocytes # 0.4 Eosinophils # 0.1 Basophils # 0.0 Nucleated Red Blood Cells # 0.0 Sodium Level 140 Potassium Level 4.6 Chloride Level 101 Carbon Dioxide Level 30 Anion Gap 14 Blood Urea Nitrogen 15 Creatinine 0.87 Glucose Level 105 Calcium Level 9.2 Phosphorus Level 4.4 Magnesium Level 2.1 Medications Medications Current Medications IV Flush (NS 3 ml) 3 ml Q8 IV Last administered on 05/19/17 14:31; Admin Dose 3 ML; Start 05/18/17 at 14:00 Miscellaneous Information (* Miscellaneous Pharmacy Order) HOLD all METFORMIN ... ONCE XX Last administered on 05/18/17 10:51; Admin Dose 1 EA; Start at 10:30; Stop 05/20/17 at 10:29 Morphine Sulfate (morphine) 2 mg Q2H PRN IV FOR NON CARDIAC PAIN (4-10) Last administered on 05/19/17 17:43; Admin Dose 2 MG; Start 05/18/17 at 10:30 Ondansetron HCl (Zofran Inj) 4 mg Q4H PRN IV NAUSEA AND/OR VOMITING Last administered on 05/19/17 10:59; Admin Dose 4 MG; Start 05/18/17 at 10:30 Aspirin (Aspirin) 81 mg DAILY PO Last administered on 05/19/17 09:04; Admin Dose 81 MG; Start 05/19/17 at 09:00 Clopidogrel Bisulfate (plaVIX) 75 mg DAILY PO Last administered on 05/19/17 09 :04; Admin Dose 75 MG; Start 05/19/17 at 09:00 Metoprolol Tartrate (Lopressor) 50 mg BID PO ; Start 05/18/17 at 21:00 Ranolazine (Ranexa) 500 mg BID PO Last administered on 05/19/17 09:04; Admin Dose 500 MG; Start 05/18/17 at 21:00 Acetaminophen (Tylenol Tab) 650 mg Q4H PRN PO PAIN AND OR ELEVATED TEMP Last administered on 05/19/17 14:36; Admin Dose 650 MG; Start 05/18/17 at 23:00 MALINI CORREIA MD May 19, 2017 18:50
[2017-05-19] MEDS ORDERED: OXYCODONE/ACETAMINOPHEN (5/325) TAB PO PRN (21:00)
[2017-05-20] VITALS (11 sets, daily range): BP systolic 116–157; BP diastolic 52–75; PULSE 42–60; RESP 15–22
[2017-05-20] MEDS: ZOLPIDEM 5 MG TAB PO PRN (01:56)
[2017-05-20 05:25] LABS: ADD SCAN DIFF NO
[2017-05-20 05:34] LABS: BASOPHILS % 0.7 % (0.0-2.0); EOSINOPHILS # 0.3 10^3/ul (0.0-0.5); EOSINOPHILS % 4.9 % (0.0-7.0); HEMATOCRIT 37.9 % (42.0-52.0); LYMPHOCYTES % 16.8 % (15.0-51.0); MEAN CORPUSCULAR HEMOGLOBIN 29.3 pg (29.0-33.0); MEAN CORPUSCULAR HGB CONC 31.7 g/dl (32.0-37.0); MEAN CORPUSCULAR VOLUME 92.4 fl (82.0-101.0); MEAN PLATELET VOLUME 10.2 fl (7.4-10.4); MONOCYTE # 0.5 10^3/ul (0.3-0.9); NEUTROPHIL # 3.9 10^3/ul (1.6-7.5); NEUTROPHILS % 68.2 % (39.0-77.0); PLATELET COUNT 218 10^3/UL (140-415); RED CELL DISTRIBUTION WIDTH 13.4 % (11.5-14.5); WHITE BLOOD COUNT 5.7 10^3/ul (4.8-10.8)
[2017-05-20] MEDS: NACL 0.9% 3 ML SYG IV SCH ×2 (05:47→14:00)
[2017-05-20] MEDS: ACETAMINOPHEN 325 MG TAB PO PRN (06:12)
[2017-05-20 06:47] LABS: CREATININE 0.88 mg/dl (0.61-1.24); MAGNESIUM 2.1 mg/dl (1.7-2.5); PHOSPHORUS 3.6 mg/dl (2.5-4.9)
[2017-05-20] MEDS: METOPROLOL 50 MG TAB PO SCH (08:49)
[2017-05-20] MEDS: RANOLAZINE (SR) 500 MG TAB PO SCH (08:50)
[2017-05-20] MEDS: ASPIRIN 81 MG TAB PO SCH (08:50)
[2017-05-20] MEDS: CLOPIDOGREL 75 MG TAB PO SCH (08:50)
--- NOTE | 2017-05-20 11:02 | CONS ---
Date/Time of Note Date/Time of Note DATE: 05/20/17 TIME: 11:00 Assessment/Plan Assessment/Plan Chief Complaint/Hosp Course CAD/CABG: s/p PCI of distal OM which supplies two vein grafts (diag and PDA). HTN CKD: Cr normal now Urinary retention: pop now removed -ok for d/c if ok per urology -ASA and plavix as outpt -f/u with Dr. Myers in 1-2 weeks Problems: Consultation Date/Type/Reason Admit Date/Time May 20, 2017 at 01:59 Initial Consult Date 05/18/17 Type of Consultation: Cardiology Referring Provider: PRISCILA SINGLETON DO 24 HR Interval Summary Free Text/Dictation D/c held due to pop. Pop now removed. Making small amount of urine. Exam/Review of Systems Vital Signs Vitals Vital Signs Date Time Temp Pulse Resp B/P Pulse Ox O2 Delivery O2 Flow Rate FiO2 05/20/17 10:33 42 05/20/17 08:12 98.1 17 136/62 95 05/20/17 04:00 Room Air Intake and Output 05/19/17 05/19/17 05/20/17 15:00 23:00 07:00 Intake Total 560 ml 270 ml Output Total 750 ml 950 ml 400 ml Balance -190 ml -680 ml -400 ml Exam Constitutional: alert, oriented Psych: nl mood/affect, no complaints Head: normocephalic Neck: No jvd Respiratory: clear to auscultation, No crackles/rales Cardiovascular: regular rate and rhythm, No edema, No systolic murmur Gastrointestinal: non-tender, soft Neurological: nl mental status, nl speech Results Result Diagram: 05/20/17 0505 05/20/17 0505 Results 24 hrs Laboratory Tests Test 05/20/17 05:05 White Blood Count 5.7 # Red Blood Count 4.10 L Hemoglobin 12.0 L Hematocrit 37.9 L Mean Corpuscular Volume 92.4 Mean Corpuscular Hemoglobin 29.3 Mean Corpuscular Hemoglobin Concent 31.7 L Red Cell Distribution Width 13.4 Platelet Count 218 Mean Platelet Volume 10.2 Neutrophils % 68.2 Lymphocytes % 16.8 Monocytes % 9.0 Eosinophils % 4.9 Basophils % 0.7 Nucleated Red Blood Cells % 0.0 Neutrophils # 3.9 Lymphocytes # 1.0 Monocytes # 0.5 Eosinophils # 0.3 Basophils # 0.0 Nucleated Red Blood Cells # 0.0 Sodium Level 134 L Potassium Level 4.0 Chloride Level 100 Carbon Dioxide Level 32 H Anion Gap 6 #L Blood Urea Nitrogen 15 Creatinine 0.88 Glucose Level 94 Calcium Level 9.0 Phosphorus Level 3.6 Magnesium Level 2.1 Medications Medications Current Medications IV Flush (NS 3 ml) 3 ml Q8 IV Last administered on 05/20/17 05:47; Admin Dose 3 ML; Start 05/18/17 at 14:00 Morphine Sulfate (morphine) 2 mg Q2H PRN IV FOR NON CARDIAC PAIN (4-10) Last administered on 05/19/17 17:43; Admin Dose 2 MG; Start 05/18/17 at 10:30 Ondansetron HCl (Zofran Inj) 4 mg Q4H PRN IV NAUSEA AND/OR VOMITING Last administered on 05/19/17 10:59; Admin Dose 4 MG; Start 05/18/17 at 10:30 Aspirin (Aspirin) 81 mg DAILY PO Last administered on 05/20/17 08:50; Admin Dose 81 MG; Start 05/19/17 at 09:00 Clopidogrel Bisulfate (plaVIX) 75 mg DAILY PO Last administered on 05/20/17 08 :50; Admin Dose 75 MG; Start 05/19/17 at 09:00 Metoprolol Tartrate (Lopressor) 50 mg BID PO Last administered on 05/20/17 08: 49; Admin Dose 50 MG; Start 05/18/17 at 21:00 Ranolazine (Ranexa) 500 mg BID PO Last administered on 05/20/17 08:50; Admin Dose 500 MG; Start 05/18/17 at 21:00 Acetaminophen (Tylenol Tab) 650 mg Q4H PRN PO PAIN AND OR ELEVATED TEMP Last administered on 05/20/17 06:12; Admin Dose 650 MG; Start 05/18/17 at 23:00 Oxycodone/ Acetaminophen (Percocet (5/ 325)) 1 tab Q4H PRN PO PAIN; Start 05/19 at 21:00 POOJA KRUGER May 20, 2017 11:01
--- NOTE | 2017-05-20 12:44 | PN ---
Date/Time of Note Date/Time of Note DATE: 05/20/17 TIME: 12:38 Assessment/Plan VTE Prophylaxis VTE Prophylaxis Intervention: ambulation Lines/Catheters IV [facility]atheter Type (from [facility]): Saline Lock Urinary Cath still in place: No Assessment/Plan Chief Complaint/Hosp Course Earlier the patient did urinate about 50 mL. The nurse did a bladder scan and stated that showed about 999 mL therefore the nurse tried to do straight cath for the patient and met resistance. However the patient stated that he did urinate after that about 200 mL. I did a bladder scan on him myself and the postvoid residual was between 100 to 250 mL. I then to make sure that he is emptying his bladder well did straight cath on him and his postvoid residual was only 120 mL. Therefore the patient could go home and he should follow-up with me as an outpatient. I gave him my card and my phone number so he could call later on and make the appointment Problems: Assessment/Plan Earlier the patient did urinate about 50 mL. The nurse did a bladder scan and stated that showed about 999 mL therefore the nurse tried to do straight cath for the patient and met resistance. However the patient stated that he did urinate after that about 200 mL. I did a bladder scan on him myself and the postvoid residual was between 100 to 250 mL. I then to make sure that he is emptying his bladder well did straight cath on him and his postvoid residual was only 120 mL. Therefore the patient could go home and he should follow-up with me as an outpatient. I gave him my card and my phone number so he could call later on and make the appointment Subjective 24 Hr Interval Summary Constitutional: no complaints Eyes: no complaints ENT: no complaints Respiratory: no complaints Cardiovascular: other (Patient states that he feels better after he had the coronary stent put in, he feels more energetic) Gastrointestinal: No nausea, No vomiting Genitourinary: other (Patient did void twice last time about 200 mL, he denies any pain and states that his urine came out easily) Musculoskeletal: no complaints Skin: no complaints Neurologic: no complaints Endocrine: no complaints Psychological: no complaints Exam/Review of Systems Vital Signs Vitals Vital Signs Date Time Temp Pulse Resp B/P Pulse Ox O2 Delivery O2 Flow Rate FiO2 05/20/17 12:01 59 05/20/17 11:18 97.9 17 144/65 98 05/20/17 04:00 Room Air Intake and Output 05/19/17 05/19/17 05/20/17 15:00 23:00 07:00 Intake Total 560 ml 270 ml Output Total 750 ml 950 ml 400 ml Balance -190 ml -680 ml -400 ml Exam Head: normocephalic Eyes: nl conjunctiva ENMT: nl external ears & nose Neck: supple Respiratory: normal air movement Cardiovascular: nl pulses Gastrointestinal: non-tender, soft Genitourinary - Male: nl penis, nl scrotum, other (No suprapubic tenderness and the bladder did not feel distended) Musculoskeletal: nl extremities to inspection Extremities: No calf tenderness, No edema Skin: nl turgor Lymph: nl lymph nodes Results Result Diagram: 05/20/17 0505 05/20/17 0505 Results 24 hrs Laboratory Tests Test 05/20/17 05:05 White Blood Count 5.7 # Red Blood Count 4.10 L Hemoglobin 12.0 L Hematocrit 37.9 L Mean Corpuscular Volume 92.4 Mean Corpuscular Hemoglobin 29.3 Mean Corpuscular Hemoglobin Concent 31.7 L Red Cell Distribution Width 13.4 Platelet Count 218 Mean Platelet Volume 10.2 Neutrophils % 68.2 Lymphocytes % 16.8 Monocytes % 9.0 Eosinophils % 4.9 Basophils % 0.7 Nucleated Red Blood Cells % 0.0 Neutrophils # 3.9 Lymphocytes # 1.0 Monocytes # 0.5 Eosinophils # 0.3 Basophils # 0.0 Nucleated Red Blood Cells # 0.0 Sodium Level 134 L Potassium Level 4.0 Chloride Level 100 Carbon Dioxide Level 32 H Anion Gap 6 #L Blood Urea Nitrogen 15 Creatinine 0.88 Glucose Level 94 Calcium Level 9.0 Phosphorus Level 3.6 Magnesium Level 2.1 Medications Medications Current Medications IV Flush (NS 3 ml) 3 ml Q8 IV Last administered on 05/20/17 05:47; Admin Dose 3 ML; Start 05/18/17 at 14:00 Morphine Sulfate (morphine) 2 mg Q2H PRN IV FOR NON CARDIAC PAIN (4-10) Last administered on 05/19/17 17:43; Admin Dose 2 MG; Start 05/18/17 at 10:30 Ondansetron HCl (Zofran Inj) 4 mg Q4H PRN IV NAUSEA AND/OR VOMITING Last administered on 05/19/17 10:59; Admin Dose 4 MG; Start 05/18/17 at 10:30 Aspirin (Aspirin) 81 mg DAILY PO Last administered on 05/20/17 08:50; Admin Dose 81 MG; Start 05/19/17 at 09:00 Clopidogrel Bisulfate (plaVIX) 75 mg DAILY PO Last administered on 05/20/17 08 :50; Admin Dose 75 MG; Start 05/19/17 at 09:00 Metoprolol Tartrate (Lopressor) 50 mg BID PO Last administered on 05/20/17 08: 49; Admin Dose 50 MG; Start 05/18/17 at 21:00 Ranolazine (Ranexa) 500 mg BID PO Last administered on 05/20/17 08:50; Admin Dose 500 MG; Start 05/18/17 at 21:00 Acetaminophen (Tylenol Tab) 650 mg Q4H PRN PO PAIN AND OR ELEVATED TEMP Last administered on 05/20/17 06:12; Admin Dose 650 MG; Start 05/18/17 at 23:00 Oxycodone/ Acetaminophen (Percocet (5/ 325)) 1 tab Q4H PRN PO PAIN; Start 05/19 at 21:00 MALINI CORREIA MD May 20, 2017 12:44
--- NOTE | 2017-05-30 10:17 | DS ---
DATE OF ADMISSION: 05/20/2017 DATE OF DISCHARGE: 05/20/2017 HOSPITAL COURSE: This is a 77-year-old male with a past medical history of coronary artery disease status post CABG, 2008; history of colon cancer status post resection with colostomy bag; history of hypertension, who presented to [facility] to undergo elective cardiac catheterization. The patient was noted to have a positive nuclear scan in the outpatient setting, which shows lateral ischemic wall with viability. Patient underwent elective cardiac catheterization by Dr . Patient had a PCI placed at . Following the procedure the patient was in the intensive care unit and stable. Patient did have urinary retention with a history of BPH necessity Cortez catheter placement by Dr . Patient was then subsequently transferred to telemetry after being stable for 24 hours. Cotrez catheter was removed, and patient was able to void appropriately. The patient otherwise has been stable. Other medical problems including hypertension, anxiety, and depression have been stable. 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 FINAL DIAGNOSES: 1. Coronary artery disease status post cardiac catheterization with percutaneous coronary intervention to the obtuse marginal. 2. Benign prostatic hyperplasia (BPH) with urinary retention status post Cortez catheter placement and removal. 3. History of coronary artery bypass graft. 4. Hypertension. 5. Anxiety and depression. 6. Mild anemia. 7. Mild hyponatremia. FINAL MEDICATIONS: See reconciliation list. The patient will continue his home medications of: 1. Aspirin. 2. Plavix. 3. Citalopram. 4. Lasix. 5. Zofran. 6. Ambien. 7. Ranexa. 8. Metoprolol. I spent over 40 minutes' time preparing patient's discharge. DISCHARGE CONDITION: At the time of discharge, patient was stable, in no acute distress. Dictated By: Percy Lance DO /[email or web address] /Document#: [id number]
== END 2017-05-20 14:45 | disposition home or self-care (01) ==
LOC: SDS 07:44 → ICU 10:50 → SDS 05-20 01:58 → ICU 05-20 01:58 → UNDOADMIN 05-20 01:59 → TEL 05-20 05:43 → ICU 05-20 05:43 → UNDODISIN 05-20 14:45 → SDS 05-20 14:45
PROVIDERS: ATTEND Internal Medicine Interventional Cardiology
DX: I25.119 Atherosclerotic heart disease of native coronary artery with unspecified angina pectoris (principal); R94.39 Abnormal result of other cardiovascular function study; I10 Essential (primary) hypertension; N40.1 Benign prostatic hyperplasia with lower urinary tract symptoms; R33.8 Other retention of urine; F41.8 Other specified anxiety disorders; D64.9 Anemia, unspecified; E87.1 Hypo-osmolality and hyponatremia
CPT/HCPCS: 51702; 80048; 83735; 84100; 85025; 85610; 85730; 87081; 93005; 93458; 97161; C1725; C1874; C1887; C1894; G8978; G8979; G8980; J0583; J1170; J1644; J2250; J2270; J2405; J3010; Q9967; J0461

== ENCOUNTER 2018-07-20 20:25 | Inpatient (IN) | END 2018-08-05 13:33 | disposition still patient (30) | DRG 668 ==